=== PATIENT | male | born 1950 | race African-American/Black ===

== ENCOUNTER 2018-06-04 23:57 | Emergency (ER) | payer OTHER ==
[~2018-06-04] VITALS: Ht 177.8 cm; Wt 108.0 kg
[2018-06-05] MEDS ORDERED: PRADAXA75 MG PO (00:18)
[2018-06-05] MEDS ORDERED: CATAPRES0.3 M1 PO (00:19)
[2018-06-05] MEDS ORDERED: ASPIRIN 81 LOW81 MG PO (00:20)
[2018-06-05] MEDS ORDERED: ATORVASTATIN CA40 MG PO (00:22)
[2018-06-05 00:26] LABS: HEMATOCRIT 39.3 % (39.0-50.0); HEMOGLOBIN 12.9 g/dl (14.0-18.0); IMMATURE GRANULOCYTES 0.2 % (0.0-5.0); MEAN CELL VOLUME 88.7 fL CALC (80.0-100.0); MEAN CORPUSCULAR HGB 29.1 pG CALC (26.0-32.0); MEAN CORPUSCULAR HGB CONC 32.8 g/L CALC (32.0-36.0); NEUT# 6.69 thou/uL (1.82-7.42); RED BLOOD COUNT 4.43 mill/uL (4.70-6.10); RED CELL DISTRI WIDTH 14.1 % (11.5-15.5)
[2018-06-05 00:40] LABS: ALBUMIN 4.4 g/dL (3.2-5.0); ALKALINE PHOSPHATASE 72 u/l (38-126); AMYLASE 65 u/l (30-110); ANION GAP 14 (6-22 (CALC)); BILIRUBIN, TOTAL 0.5 mg/dL (0.0-1.4); BUN 19 mg/dL (8-23); BUN/CREATININE RATIO 14 (12-20 (CALC)); CARBON DIOXIDE 25 mmol/l (22-30); CHLORIDE 107 mmol/l (95-108); CREATININE 1.4 mg/dL (0.7-1.3); GFR 51 ML/MIN (>=60 (CALC)); GFR FOR AFR.AMER. > 60 ML/MIN (>=60 (CALC)); LIPASE 97 u/l (23-300); POTASSIUM 3.7 mmol/l (3.5-5.1); SGOT/AST 37 u/l (19-48); SODIUM 142 mmol/l (137-146)
[2018-06-05 00:51] LABS: MYOGLOBIN 42 ng/mL (0 - 121)
[2018-06-05 01:42] VITALS: BP 177/105
== END 2018-06-05 01:49 | DRG 313 ==
LOC: ED 23:57
PROVIDERS: Family Medicine
DX: R07.9 Chest pain, unspecified (principal); I10 Essential (primary) hypertension; I25.2 Old myocardial infarction